=== PATIENT | female | born 1990 | race Two or more races ===

== ENCOUNTER 2017-12-30 16:05 | Observation (INO) | payer MEDICAID ==
[~2017-12-30] VITALS: Ht 157.5 cm; Wt 99.3 kg
[2017-12-30] MEDS ORDERED: LACTATED RINGER'S 1,000 ML IV ONE (17:21)
[2017-12-30] MEDS ORDERED: TERBUTALINE SULFATE 1 MG/ML 1ML VIAL SC ONE (17:27)
[2017-12-30] MEDS ORDERED: TERBUTALINE SULFATE 1 MG/ML 1ML VIAL SC SCH (17:30)
[2017-12-30] MEDS ORDERED: PREN-96 PO (18:21)
[2017-12-30] MEDS ORDERED: FERR-7 PO (18:21)
== END 2017-12-30 18:55 | disposition home or self-care (01) | DRG 566 ==
LOC: LDRP 16:05
PROVIDERS: ADMIT Specialist; ATTEND Specialist
DX: O62.9 Abnormality of forces of labor, unspecified (principal); O42.90 Premature rupture of membranes, unspecified as to length of time between rupture and onset of labor, unspecified weeks of gestation; O26.893 Other specified pregnancy related conditions, third trimester; F17.210 Nicotine dependence, cigarettes, uncomplicated; N89.8 Other specified noninflammatory disorders of vagina; O99.333 Smoking (tobacco) complicating pregnancy, third trimester; Z3A.32 32 weeks gestation of pregnancy
CPT/HCPCS: 59025; 81002; 96372; G0378; J3105